=== PATIENT | male | born 1970 | race American Indian/Alaskan Native ===

== ENCOUNTER 2020-08-24 16:07 | Emergency (ER) | payer SELFPAY ==
[2020-08-24 16:15] VITALS: BP 120/83
--- NOTE | 2020-08-24 17:19 | Emergency Department Report ---
- General Chief complaint: Wound/Laceration Stated complaint: RASH Time Seen by Provider: 08/24/20 16:28 Source: patient Mode of arrival: Ambulatory Limitations: No Limitations - History of Present Illness Initial comments: This is a 49-year-old male nontoxic, well nourished in appearance, no acute signs of distress presents to the ED with c/o of scaly rash to scalp with hair loss x several months. Patient stated last week started to have bilateral ear itching and has been scratching his ears and now has some abrasions. Denies any diffuse rash. Patient denies any drooling, hoarseness or facial swelling. Patient denies any trauma. She denies any fever, chills, nausea, vomiting, chest pain, shortness of breath, headache, stiff neck, numbness or tingling. Patient denies any alleriges. MD complaint: rash, other (hair loss) -: month(s) Location: head, face Severity: mild Quality: burning Consistency: constant Improves with: none Worsens with: none Context: none Associated symptoms: denies other symptoms Treatments Prior to Arrival: none - Related Data Previous Rx's Medication Instructions Recorded Last Taken Type Clindamycin [Clindamycin CAP] 300 mg PO Q8H #21 cap 08/24/20 Unknown Rx Terbinafine (Nf) [LamiSIL] 250 mg PO QDAY #28 tablet 08/24/20 Unknown Rx Abscess Boil HPI - HPI Chief Complaint: Wound/Laceration Stated Complaint: RASH Time Seen by Provider: 08/24/20 16:28 Home Medications: Previous Rx's Medication Instructions Recorded Last Taken Type Clindamycin [Clindamycin CAP] 300 mg PO Q8H #21 cap 08/24/20 Unknown Rx Terbinafine (Nf) [LamiSIL] 250 mg PO QDAY #28 tablet 08/24/20 Unknown Rx ED Review of Systems ROS: Stated complaint: RASH Other details as noted in HPI Constitutional: denies: chills, fever Eyes: denies: eye pain, eye discharge, vision change ENT: denies: ear pain, throat pain Respiratory: denies: cough, shortness of breath, wheezing Cardiovascular: denies: chest pain, palpitations Endocrine: no symptoms reported Gastrointestinal: denies: abdominal pain, nausea, diarrhea Genitourinary: denies: urgency, dysuria Musculoskeletal: denies: back pain, joint swelling, arthralgia Skin: rash. denies: lesions Neurological: denies: headache, weakness, paresthesias Psychiatric: denies: anxiety, depression Hematological/Lymphatic: denies: easy bleeding, easy bruising ED Past Medical Hx - Past Medical History Previous Medical History?: No - Surgical History Past Surgical History?: No - Social History Smoking Status: Current Every Day Smoker Substance Use Type: Alcohol - Medications Home Medications: Home Medications Medication Instructions Recorded Confirmed Last Taken Type Clindamycin [Clindamycin CAP] 300 mg PO Q8H #21 cap 08/24/20 Unknown Rx Terbinafine (Nf) [LamiSIL] 250 mg PO QDAY #28 tablet 08/24/20 Unknown Rx ED Physical Exam - General Limitations: No Limitations General appearance: alert, in no apparent distress - Head Head exam: Present: atraumatic, normocephalic - Expanded Head Exam Expanded 1 - scaly rash with hair loss. 2 - scaly rash with hair loss 3 - scaly rash with hair loss 4 - abrasions and redness 5 - redness and abrasions - Eye Eye exam: Present: normal appearance - Neck Neck exam: Present: normal inspection, full ROM. Absent: tenderness, meningismus, lymphadenopathy - Respiratory Respiratory exam: Absent: respiratory distress - Cardiovascular Cardiovascular Exam: Present: regular rate - Extremities Exam Extremities exam: Present: normal inspection, full ROM - Back Exam Back exam: Present: normal inspection, full ROM - Neurological Exam Neurological exam: Present: alert, oriented X3, normal gait - Psychiatric Psychiatric exam: Present: normal affect, normal mood - Skin Skin exam: Present: warm, dry, intact, normal color. Absent: rash ED Course Vital Signs 08/24/20 16:13 Temperature 98.1 F Pulse Rate 67 Respiratory 18 Rate Blood Pressure 120/83 O2 Sat by Pulse 100 Oximetry - Reevaluation(s) Reevaluation #1: 08/24/20 17:48 Patient is speaking in full sentences with no signs of distress noted. ED Medical Decision Making - Medical Decision Making This is a 49-year-old male that presents with cellulitis with Tinea capitis. Patient is stable and was examined by me. There is no induration, fluctuance. No signs of abscess formation. I will discharge patient with Clinda. Patient was referred to Follow-up with a primary care doctor in 3-5 days or if symptoms worsen and continue return to emergency room as soon as possible. At time of discharge, the patient does not seem toxic or ill in appearance. No acute signs of distress noted. Patient agrees to discharge treatment plan of care. No further questions noted by the patient. Critical care attestation.: If time is entered above; I have spent that time in minutes in the direct care of this critically ill patient, excluding procedure time. ED Disposition Clinical Impression: Tinea capitis, Abrasion Cellulitis Qualifiers: Site of cellulitis: face Qualified Code(s): L03.211 - Cellulitis of face Disposition: DC- TO HOME OR SELFCARE Is pt being admited?: No Does the pt Need Aspirin: No Condition: Stable Instructions: Scalp Ringworm, Pediatric, [id number], Cellulitis, Adult Additional Instructions: Follow-up with a primary care doctor in 3-5 days or if symptoms worsen and continue return to emergency room as soon as possible. Prescriptions: Clindamycin [Clindamycin CAP] 300 mg PO Q8H #21 cap Terbinafine (Nf) [LamiSIL] 250 mg PO QDAY #28 tablet Referrals: EMMA GUAN [Other] - 3-5 Days SHANNAN COLMENARES MD [Staff Physician] - 3-5 Days Time of Disposition: 17:55
== END 2020-08-24 18:21 | disposition home or self-care (01) ==
LOC: ED 16:07
DX: S00.81XA Abrasion of other part of head, initial encounter (principal); B35.0 Tinea barbae and tinea capitis; L03.211 Cellulitis of face; F17.200 Nicotine dependence, unspecified, uncomplicated; Z79.899 Other long term (current) drug therapy; X58.XXXA Exposure to other specified factors, initial encounter; Y93.89 Activity, other specified; Y92.89 Other specified places as the place of occurrence of the external cause; Y99.8 Other external cause status
CPT/HCPCS: 99281

== ENCOUNTER 2022-01-24 08:03 | Emergency (ER) | payer SELFPAY ==
[2022-01-24 08:17] VITALS: BP 176/101
[2022-01-24] MEDS ORDERED: ASPIRIN 325 MG TAB PO ONE (08:37)
--- NOTE | 2022-01-24 09:09 | Emergency Department Report ---
ED Chest Pain HPI - General Chief Complaint: Chest Pain Stated Complaint: STEMI Time Seen by Provider: 01/24/22 08:46 Source: patient Mode of arrival: Stretcher Limitations: No Limitations - History of Present Illness Initial Comments: 51-year-old male with a history of HIV brought in by EMS with chest pain that started around 6 AM when patient woke up. Patient was given 325 of aspirin and 0.4 of nitro with some relief with the discomfort. Patient describes as burning in the middle of the chest. Last meal was last night and it was pork. No histo ry of CAD or hypertension. Patient denies any cough, shortness of breath or palpitation. No fever or chills noted. No other modifying or associated factors reported. off note patient initially called STEMI by the EMS 4 minutes away but noted the ECG to be normal on presentation to the ED. Severity scale (0 -10): 6 - Related Data Previous Rx's Medication Instructions Recorded Last Taken Type Clindamycin [Clindamycin CAP] 300 mg PO Q8H #21 cap 08/24/20 Unknown Rx Terbinafine (Nf) [LamiSIL] 250 mg PO QDAY #28 tablet 08/24/20 Unknown Rx Omeprazole Magnesium [PriLOSEC Otc] 20 mg PO BID 30 Days #60 tab NS 01/24/22 Unknown Rx Ondansetron (Nf) [Zofran TAB] 8 mg PO Q8HR PRN 5 Days #15 tablet 01/24/22 Unknown Rx NS hydrOXYzine PAMOATE [Vistaril] 25 mg PO Q6HR PRN 5 Days #20 01/24/22 Unknown Rx capsule NS Allergies Allergy/AdvReac Type Severity Reaction Status Date / Time No Known Allergies Allergy Verified 01/24/22 08:11 Heart Score - HEART Score History: Slightly suspicious EKG: Normal Age: 45-65 Risk factors: No known risk factors Troponin: < normal limit HEART Score: 1 - EKG Read Time Time EKG Completed: 08:05 EKG Read Time: 08:06 ED Review of Systems ROS: Stated complaint: STEMI Other details as noted in HPI Comment: All other systems reviewed and negative Cardiovascular: chest pain ED Past Medical Hx - Past Medical History Previous Medical History?: Yes Hx HIV: Yes - Surgical History Past Surgical History?: No - Social History Smoking Status: Current Every Day Smoker Substance Use Type: Alcohol, Marijuana - Medications Home Medications: Home Medications Medication Instructions Recorded Confirmed Last Taken Type Clindamycin [Clindamycin CAP] 300 mg PO Q8H #21 cap 08/24/20 Unknown Rx Terbinafine (Nf) [LamiSIL] 250 mg PO QDAY #28 tablet 08/24/20 Unknown Rx Omeprazole Magnesium [PriLOSEC Otc] 20 mg PO BID 30 Days #60 tab NS 01/24/22 Unknown Rx Ondansetron (Nf) [Zofran TAB] 8 mg PO Q8HR PRN 5 Days #15 tablet 01/24/22 Unknown Rx NS hydrOXYzine PAMOATE [Vistaril] 25 mg PO Q6HR PRN 5 Days #20 01/24/22 Unknown Rx capsule NS ED Physical Exam - General Limitations: No Limitations General appearance: alert, in no apparent distress - Head Head exam: Present: normal inspection - Eye Eye exam: Present: normal appearance Pupils: Present: normal accommodation - ENT ENT exam: Present: normal exam, normal orophraynx, mucous membranes moist - Neck Neck exam: Present: normal inspection, full ROM. Absent: tenderness - Respiratory Respiratory exam: Present: normal lung sounds bilaterally. Absent: respiratory distress, accessory muscle use - Cardiovascular Cardiovascular Exam: Present: regular rate, normal rhythm, normal heart sounds - GI/Abdominal GI/Abdominal exam: Present: soft, normal bowel sounds. Absent: distended, tenderness - Extremities Exam Extremities exam: Present: normal inspection, full ROM, normal capillary refill. Absent: tenderness, pedal edema, joint swelling - Back Exam Back exam: Absent: tenderness - Neurological Exam Neurological exam: Present: alert, oriented X3 - Psychiatric Psychiatric exam: Present: normal affect - Skin Skin exam: Present: warm, normal color ED Course Vital Signs 01/24/22 08:11 Temperature 98.6 F Pulse Rate 55 L Respiratory 16 Rate Blood Pressure 176/101 O2 Sat by Pulse 100 Oximetry AHMET score - Ahmet Score Age > 65: (0) No Aspirin use within the Past 7 Days: (0) No 3 or more CAD Risk Factors: (0) No 2 or more Angina events in past 24 hrs: (0) No Known CAD with more than 50% Stenosis: (0) No Elevated Cardiac Markers: (0) No ST Deviation Greater than 0.5mm: (0) No AHMET Score: 0 ED Medical Decision Making - Lab Data Result diagrams: 01/24/22 08:48 01/24/22 08:48 - EKG Data -: EKG Interpreted by Me EKG shows normal: sinus rhythm Rate: normal - EKG Data 01/24/22 09:07 Noted with sinus bradycardia at a rate of 50 bpm with possible early repolarization and normal QT in this otherwise normal ECG. - Medical Decision Making Here with burning chest pain/pressure even though this is likely GERD or reflux--differential could be but not limited to myocardial infarction, pulmonary embolism, costochondritis, anxiety, gastritis, pancreatitis, and or pyelonephritis--in order to rule out the above-- so will go ahead and order routine cardiopulmonary work-up that include troponin, EKG, chest x-ray, BNP, CKMB, and CBC, CMP and urinalysis for any correctable infectious process or electrolyte abnormality as a cause. Pt have already had aspirin and nitro with improvement-- will just follow up on the above labs-- AHMET score is zero which makes him low risk for ND -- Labs reviewed to be unremarkable including initial troponin -- this patient has low risk and reports improvement with Gi cocktail which consistent with likely acid reflux or muscle spasm-- will d/c home on Prilosec and Zofran and Vistaril and close follow up with his PCP. Critical care attestation.: If time is entered above; I have spent that time in minutes in the direct care of this critically ill patient, excluding procedure time. ED Disposition Clinical Impression: Muscle spasm, Non-cardiac chest pain GERD (gastroesophageal reflux disease) Qualifiers: Esophagitis presence: esophagitis presence not specified Qualified Code(s): K21.9 - Gastro-esophageal reflux disease without esophagitis Disposition: 01 HOME / SELF CARE / HOMELESS Is pt being admited?: No Does the pt Need Aspirin: No Condition: Stable Instructions: Nonspecific Chest Pain, Adult, [id number], Muscle Cramps and Spasms, [id number], Food Choices for Gastroesophageal Reflux Disease, Adult, [id number] Additional Instructions: Avoid heavy fatty meals as this could worsen your symptoms Increase your daily fluid to help your hydration Take your new medications as prescribed to continue to help your symptoms Please do not hesitate to call or return to emergency if your symptoms worsen In the meantime call and schedule follow-up with your primary doctor in the next 3 to 5 days for progress Prescriptions: Omeprazole Magnesium [PriLOSEC Otc] 20 mg PO BID 30 Days #60 tab NS hydrOXYzine PAMOATE [Vistaril] 25 mg PO Q6HR PRN 5 Days #20 capsule NS PRN Reason: Pain , Severe (7-10) Ondansetron (Nf) [Zofran TAB] 8 mg PO Q8HR PRN 5 Days #15 tablet NS PRN Reason: Nausea Referrals: PRIMARY CARE,MD [Primary Care Provider] - 3-5 Days Time of Disposition: 13:21
[2022-01-24 09:10] LABS: Basophils % (Auto) 1.1 % (0.0-1.8); Eosinophils # (Auto) 0.1 K/mm3 (0.0-0.4); Eosinophils % (Auto) 2.8 % (0.0-4.3); Hematocrit 40.4 % (35.5-45.6); Lymphocytes # (Auto) 1.8 K/mm3 (1.2-5.4); Lymphocytes % (Auto) 39.6 % (13.4-35.0); Mean Corpuscular HGB Conc 35 % (32-34); Mean Corpuscular Volume 90 fl (84-94); Monocytes # (Auto) 0.4 K/mm3 (0.0-0.8); Monocytes % (Auto) 9.6 % (0.0-7.3); Platelet Count 314 K/mm3 (140-440); Red Cell Distribution Width 15.2 % (13.2-15.2)
[2022-01-24 09:30] LABS: Alanine Aminotransferase 8 units/L (7-56); Albumin 4.2 g/dL (3.9-5); BUN/Creatinine Ratio 10; Blood Urea Nitrogen 11 mg/dL (9-20); Calcium 9.2 mg/dL (8.4-10.2); Hemolysis Index 13
[2022-01-24] MEDS ORDERED: ALUM-MAG HYDROXIDE-SIMETHICONE 200-200-20MG/5ML ORAL LIQD 30 ML PO ONE (13:15)
[2022-01-24] MEDS ORDERED: LIDOCAINE VISCOUS 2% 15 ML ORAL LIQD PO ONE (13:16)
--- NOTE | 2022-01-24 13:45 | XRay Report ---
CHEST 2 VIEWS INDICATION / CLINICAL INFORMATION: chest pain. COMPARISON: None available. FINDINGS: SUPPORT DEVICES: None. HEART / MEDIASTINUM: No significant abnormality. LUNGS / PLEURA: No significant pulmonary or pleural abnormality. No pneumothorax. ADDITIONAL FINDINGS: No significant additional findings. IMPRESSION: 1. No acute findings. Signer Name: Javier Boles MD Signed: 01/24/2022 1:41 PM Workstation Name: [id number]
--- NOTE | 2022-01-25 14:06 | Electrocardiograph Report ---
[facility] Test Date: 2022-01-24 Test Time: 08:05:19 Pat Name: KATI MCCALLUM Department: Room: Gender: M Vest Maker: EMMETT : 1970 Requested By: GARRISON GOMES Order Number: [id number] Reading MD: Dhara Vicente Measurements Intervals [place] Rate: 50 P: 53 CO: 136 QRS: 51 QRSD: 85 T: 39 QT: 415 QTc: 380 Interpretive Statements Sinus bradycardia ST elev, probable normal early repol pattern No previous ECG available for comparison Electronically Signed On 01-25-2022 14:06:35 EDT by Dhara Vicente
== END 2022-01-24 13:50 | disposition home or self-care (01) ==
LOC: ED 08:03
DX: M62.838 Other muscle spasm (principal); R07.9 Chest pain, unspecified; K21.9 Gastro-esophageal reflux disease without esophagitis
CPT/HCPCS: 36415; 71046; 80053; 84484; 85025; 93005; 99284